=== PATIENT | female | born 1950 | race Caucasian/White ===

== ENCOUNTER → 2019-06-07 | Outpatient (CLI) | payer MEDICARE, OTHER | LOC: M.MRI 17:13 | DX: R90.82 White matter disease, unspecified (principal); I63.89 Other cerebral infarction; G45.9 Transient cerebral ischemic attack, unspecified ==

== ENCOUNTER → 2019-06-13 | Outpatient (CLI) | payer MEDICARE, OTHER ==
[2019-06-13 10:47] LABS: CREATININE 0.8 mg/dL (0.6-1.3)
== END ==
LOC: M.LAB 10:14 → M.CT 11:30
PROVIDERS: Family Medicine
DX: I67.1 Cerebral aneurysm, nonruptured (principal)

== ENCOUNTER 2019-08-15 19:29 | Emergency (ER) | payer MEDICARE, OTHER ==
[~2019-08-15] VITALS: Ht 160 cm; Wt 72.6 kg
[2019-08-15] MEDS ORDERED: LITHIUM CARBON600 MG PO (19:41)
[2019-08-15] MEDS ORDERED: CELEXA 10 MG TA10 M1 PO (19:43)
[2019-08-15] MEDS ORDERED: LIPITOR10 MG PO (19:43)
[2019-08-15 19:59] LABS: ABSOLUTE BASOPHILS 0.1 thou/uL (0.0-0.2); ABSOLUTE EOSINOPHILS 0.2 thou/uL (0.0-0.7); ABSOLUTE LYMPHOCYTES 2.5 thou/uL (0.8-5.3); ABSOLUTE MONOCYTES 0.7 thou/uL (0.0-1.2); ABSOLUTE NEUTROPHILS 4.6 thou/uL (1.6-8.1); BASOPHILS 0.6 %; EOSINOPHILS 3.1 %; HEMATOCRIT 40.5 % (37.0-47.0); HEMOGLOBIN 13.6 gm/dL (12.0-15.0); LYMPHOCYTES 31.2 %; MCH 30.7 pg (26.0-34.0); MCHC 33.6 g/dL (28.0-37.0); MCV 91.4 fL (80.0-100.0); MONOCYTES 8.1 %; MPV 8.2 fl. (7.2-11.1); NUCLEATED RBCS 0 /100WBC; PLATELET COUNT* 292 thou/uL (150-400); RBC 4.43 mil/uL (4.20-5.00); RDW-CV 13.1 % (10.5-14.5); WBC 8.1 thou/uL (4.0-11.0)
[2019-08-15 20:07] LABS: CALCIUM 9.9 mg/dL (8.5-10.1); POTASSIUM 3.9 mmol/L (3.5-5.1)
[2019-08-15 20:16] LABS: ALBUMIN 3.9 g/dL (3.4-5.0); MAGNESIUM 2.3 mg/dL (1.8-2.4); TOTAL BILIRUBIN 0.2 mg/dL (<0.1-1.0); TOTAL PROTEIN 7.3 g/dL (6.4-8.2)
[2019-08-15 20:33] LABS: URINE BILIRUBIN NEGATIVE (Negative); URINE BLOOD NEGATIVE (Negative); URINE CLARITY CLEAR; URINE COLOR YELLOW; URINE GLUCOSE-RANDOM NEGATIVE (Negative); URINE KETONES NEGATIVE (Negative); URINE LEUKOCYTES-REFLEX TRACE (Negative); URINE NITRITE-REFLEX NEGATIVE (Negative); URINE PROTEIN NEGATIVE (Negative); URINE UROBILINOGEN 0.2 E.U./dl (0.2-1.0)
[2019-08-15 20:39] LABS: MUCUS None Seen strn/LPF (None Seen); SQUAMOUS >10 Many /LPF (0-3)
[2019-08-15 20:40] LABS: CASTS None Seen /LPF (None Seen); CRYSTALS None Seen /LPF (None Seen); URINE WBC-REFLEX 0-5 Rare /HPF (0-5)
[2019-08-15 20:41] LABS: URINE RBC None Seen /HPF (0-2)
[2019-08-15] MEDS ORDERED: NORVASC 2.5 MG2.5 M1 PO (22:21)
[2019-08-15 22:28] VITALS: BP 139/85
--- NOTE | 2019-08-17 11:07 | EKG ---
[place] [address] ELECTROCARDIOGRAM REPORT Name: SAMARA CARTER Room: [facility]#: [id number] Admission: 08/15/19 Attend Phys: Discharge: 08/15/19 Date of : 52 Date of Service: 08/15/191946 Report #: [id number] THIS REPORT FOR: //name// [facility] ED Test Date: 2019-08-15 Test Time: 19:47:28 Pat Name: SAMARA CARTER Department: Room: Gender: Pump Station Operator: : 1950 Requested By: Roxana Oshea Order Number: [id number] MD: Eran Pérez Measurements Intervals [place] Rate: 72 P: 32 SC: 168 QRS: -65 QRSD: 151 T: 29 QT: 411 QTc: 450 Interpretive Statements Sinus rhythm Probable left atrial enlargement RBBB and LAFB Artifact in lead(s) I,III,aVR,aVL,aVF,V4,V6 and baseline wander in lead(s) II No previous ECG available for comparison Electronically Signed On 08-17-2019 11:06:34 CLINICAL PHARMACY MANAGER by Eran Pérez [email or web address] <ELECTRONICALLY SIGNED> By: Eran Pérez MD, FACC 08/17/19 1106 [id number] 46 Eran Pérez MD, FACC /EPI
--- NOTE | 2019-08-17 11:07 | EKG ---
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
== END 2019-08-15 22:28 | disposition home or self-care (01) ==
LOC: M.ERS 19:29
PROVIDERS: Emergency Medicine
DX: I10 Essential (primary) hypertension (principal); Z88.7 Allergy status to serum and vaccine